=== PATIENT | female | born 1975 | race Asian ===

== ENCOUNTER 2018-05-25 05:00 | Day surgery (SDC) | payer OTHER ==
[2018-05-21 13:38] VITALS: BMI 30.9
--- NOTE | 2018-05-25 07:01 | HP ---
History & Physical Update - History History: No Change - Physical Physical: No Change - Assessment Assessment: No Change - Plan Plan: No Change (Consent signed and witnessed)
[2018-05-25] MEDS ORDERED: MIDAZOLAM HCL 2 MG/2 ML SINGLE DOSE VIAL ONE ×2 (08:03)
[2018-05-25] MEDS ORDERED: PROPOFOL 20 ML ONE ×2 (08:08)
[2018-05-25] MEDS ORDERED: SUCCINYLCHOLINE CHLORIDE 200 MG/10 ML VIAL ONE (08:09)
[2018-05-25] MEDS ORDERED: ONDANSETRON 4 MG/2 ML VIAL IVPUSH PRN ×2 (08:56→09:11)
[2018-05-25] MEDS ORDERED: IBUPROFEN 800 MG/8 ML IJ IVPB PRN (08:56)
[2018-05-25] MEDS ORDERED: IBUPROFEN 600 MG TABLET (FP) PO PRN (08:56)
[2018-05-25] MEDS ORDERED: oxyCODONE HCL 5 MG TABLET PO PRN ×2 (08:56→09:11)
[2018-05-25] MEDS ORDERED: ELECTROLYTE-148 SOLN 1,000 ML IV SCH (09:00)
--- NOTE | 2018-05-25 09:01 | OP ---
Operative Note - Note: Operative Date: 05/25/18 Pre-Operative Diagnosis: 42 yo with menometrorhagia, thick Endometrium Operation: Hysteroscopy/Polypectomy Findings: Several polyps and overgrown Endometrium Post-Operative Diagnosis: Same as Pre-op Surgeon: Myra Davis Anesthesiologist/TELECOMMUNICATION EQUIPMENT REPAIRER: Berkley Mathur MD Anesthesia: MAC Specimens Removed: Polyps and Endometrial curetings Estimated Blood Loss (mls): 10 Drains & Tubes with Location: Fluid defficit 0cc Drains, Volume Out (mls): 300 Fluid Volume Replaced (mls): 1,000 Operative Report Dictated: Yes
[2018-05-25] MEDS ORDERED: PROMETHAZINE HCL 25 MG/1 ML VIAL IVPB PRN (09:11)
[2018-05-25] MEDS ORDERED: LACTATED RINGERS SOLUTION 1,000 ML IV SCH (09:15)
[2018-05-25 12:08] VITALS: BP 116/71; PULSE 71; TEMP 97.6
--- NOTE | 2018-05-25 23:27 | OP ---
DATE OF OPERATION: 05/25/2018 PREOPERATIVE DIAGNOSIS: A 42-year-old with menometrorrhagia and thick endometrium. OPERATIVE PROCEDURE: Hysteroscopy, polypectomy. POSTOPERATIVE DIAGNOSIS: A 42-year-old with menometrorrhagia and thick endometrium. FINDINGS: Several endometrial polyps and overgrown endometrium. SURGEON: Myra Davis M.D. ANESTHESIOLOGIST: Berkley Mathur M.D. ANESTHESIA: MAC SPECIMENS REMOVED: Polyps and endometrial curettings. DESCRIPTION OF OPERATIVE PROCEDURE: After insuring informed consent, patient was brought to the operating room where she was placed in dorsal lithotomy position. Perineum and vagina were prepped and draped in sterile fashion. Service was articulated with single-dose tenaculum after Randhawa retractors were placed into the vagina. Her cervix was found to be overly dilated. The Symphion hysteroscope was assembled, primed and white balanced. It was introduced into the cervix. A dramatically significant egress of the normal saline was observed and cervix was clamped with Allis clamps. Intrauterine contents were visualized as above noted. Several uterine polyps and overgrown endometrium. The resectoscope device was introduced through the Symphion hysteroscope and circumferential resection of endometrium and polyps was performed, excellent hemostasis was noted. Symphion was removed and sharp curettage was performed as well with size 4 curet. Symphion hysteroscope reintroduced once more and uterus was found to be empty of polyps and was thinned out endometrium. Subsequently, all instruments were removed from the uterus, cervix, and vagina. Instrument and sponge counts were correct x2. Estimated blood loss was 10 mL. Fluid deficit was zero. Urine output was 300 mL. Patient received 1000 mL of IV fluids. Tin ASHTON/[id number]
--- NOTE | 2018-05-26 12:55 | PATH ---
Surgical Pathology Report Patient Name: EPHRAIM LEIVA [facility]. Rec. #: [id number] /Age/Gender: 1975 (Age: 42) / F Account: [id number] Location: [facility] SURGICAL Taken: 05/25/2018 Received: 05/25/2018 Reported: 05/26/2018 Physicians: Myra Davis M.D. Specimen(s) Received ENDOMETRIAL CURETTINGS AND ENDOMETRIAL POLYP Clinical History Menorrhagia Final Diagnosis ENDOMETRIAL POLYP AND CURETTINGS, POLYPECTOMY, DILATION AND CURETTAGE: FRAGMENTS OF ENDOMETRIAL POLYP, SUPERFICIAL MYOMETRIUM, LATE PROLIFERATIVE TO EARLY SECRETORY ENDOMETRIUM, AND BENIGN CERVICAL TISSUE. Electronically Signed Pat Morley M.D. Gross Description Received in formalin labeled "endometrial polyp and curetting," is a 6.0 x 5.0 x 0.4 cm aggregate mcgarry pink soft tissue fragments admixed with blood clot. The specimen is entirely submitted in 9 cassettes. /05/25/2018 saudi/05/25/2018
== END 2018-05-25 11:35 | disposition home or self-care (01) ==
LOC: JASU-SURG 05:00
PROVIDERS: ATTEND Obstetrics & Gynecology
PROC: 0UJD8ZZ Inspection of Uterus and Cervix, Via Natural or Artificial Opening Endoscopic (ICD-10-PCS; 2018-05-25)
PROC: 0UB97ZX Excision of Uterus, Via Natural or Artificial Opening, Diagnostic (ICD-10-PCS; principal; 2018-05-25 07:30)
PROC: 0UDB7ZX Extraction of Endometrium, Via Natural or Artificial Opening, Diagnostic (ICD-10-PCS; 2018-05-25 07:30)
DX: N92.1 Excessive and frequent menstruation with irregular cycle (principal); N85.00 Endometrial hyperplasia, unspecified
CPT/HCPCS: 84703; 88305-TC; 94760